=== PATIENT | female | born 1980 | race Caucasian/White ===

== ENCOUNTER 2016-12-21 07:09 | Day surgery (SDC) | payer OTHER ==
[~2016-12-21] VITALS: Ht 165.1 cm; Wt 68.0 kg
[~2016-12-21 07:09] MED LIST: CALCIUM500 M4 PO; DAILY VALUE1 EACH PO; IMURAN50 MG PO; PROBIOTIC1 EAC1 PO; REMICADE10 MG/ML IV; VITAMIN C1500 MG PO; VITAMIN D31000 UNI2 PO; VITAMIN D400 UNI4 PO
[2016-12-21 07:32] VITALS: BP 111/67
[2016-12-21 12:35] VITALS: BP 117/61
[2016-12-21 13:16] LABS: INTERNAL CONTROL VALID? YES
[2016-12-21 14:10] VITALS: BP 108/64
== END 2016-12-21 14:20 | disposition home or self-care (01) ==
LOC: SDC 07:09
PROVIDERS: Orthopaedic Surgery Hand Surgery
PROC: 0PSP04Z Reposition Right Metacarpal with Internal Fixation Device, Open Approach (ICD-10-PCS; principal; 2016-12-21)
DX: S62.324A Displaced fracture of shaft of fourth metacarpal bone, right hand, initial encounter for closed fracture (principal); W22.8XXA Striking against or struck by other objects, initial encounter; Y93.52 Activity, horseback riding; K51.90 Ulcerative colitis, unspecified, without complications; Z79.899 Other long term (current) drug therapy
CPT/HCPCS: 73130; 76000; 84703; C1713; C1769; J0690; J1100; J1170; J2175; J2250; J2405; J3010; S0020

== ENCOUNTER 2017-07-24 14:57 | Day surgery (SDC) | payer OTHER ==
[~2017-07-24] VITALS: Ht 165.1 cm; Wt 69.6 kg
[~2017-07-24 14:57] MED LIST changes: -OXYCODONE HCL5 MG PO
[2017-07-24] MEDS ORDERED: OXYCODONE HCL5 MG PO (22:09)
[2017-07-25 00:10] VITALS: BP 90/54
[2017-07-25 03:35] VITALS: BP 103/58
[2017-07-25 06:25] LABS: HEMATOCRIT 34.6 % (36.0-46.0); MCHC 33.8 G/DL (30.0-36.0); MCV 94.5 FL (83-99); PLATELET COUNT 212 K/uL (156-360); RBC DIS.WIDTH-CV 12.8 % (11.8-14.6); RED BLOOD COUNT 3.66 M/uL (3.80-5.20); WHITE BLOOD COUNT 8.5 K/uL (4.1-10.2)
[2017-07-25 06:42] LABS: HEMOGLOBIN 11.7 G/DL (11.9-15.5)
[2017-07-25 06:55] LABS: CHLORIDE 108 MEQ/L (99-109); CREATININE 0.8 MG/DL (0.6-1.3); GFR ESTIMATE (CALCULATED) > 59 mL/min/; POTASSIUM 4.4 MEQ/L (3.7-5.4); SODIUM 139 MEQ/L (136-147); UREA NITROGEN (BUN) 9 mg/dL (9-23)
[2017-07-25 06:56] LABS: GLUCOSE 145 mg/dL (70-99)
[2017-07-25 07:07] VITALS: BP 97/53
[2017-07-25 11:51] VITALS: BP 90/50
== END 2017-07-25 14:07 | disposition home or self-care (01) ==
LOC: EME 14:57 → SDC 18:20 → 2SOUTH 21:53 → ENRESERV 21:56 → 2EASTP 23:22 → ENPENDDIS 07-25 14:00 → 2EASTP 07-25 14:07
PROVIDERS: Surgery
DX: K35.80 Unspecified acute appendicitis (principal); K42.9 Umbilical hernia without obstruction or gangrene; K66.0 Peritoneal adhesions (postprocedural) (postinfection); K51.90 Ulcerative colitis, unspecified, without complications; R11.2 Nausea with vomiting, unspecified
CPT/HCPCS: 80048; 84702; 85027; 88304; 99281; 99285; G0378; J1170; J1650; J2405; J3010; J7030; J7120; J7500; S0074

== ENCOUNTER → 2017-07-24 | Outpatient (CLI) | payer OTHER ==
[~2017-07-24] MED LIST changes: +OXYCODONE HCL5 MG PO
== END | disposition home or self-care (01) ==
LOC: RAD 12:40
DX: K35.80 Unspecified acute appendicitis (principal)
CPT/HCPCS: 74177; J0131; J0330; J1885; J2250; J2405; J3010